=== PATIENT | male | born 1960 | race Caucasian/White ===

== ENCOUNTER 2018-06-28 09:41 | Outpatient (CLI) | payer OTHER ==
[2018-06-28 15:04] LABS: BASOPHILS # (AUTO) 0.1 10^3/uL (0.0-0.1); BASOPHILS % (AUTO) 1.4 %; EOSINOPHILS # (AUTO) 0.2 10^3/uL (0.0-0.7); EOSINOPHILS % (AUTO) 3.7 %; HGB - HEMOGLOBIN 13.3 g/dL (14.0-18.0); LYMPHOCYTES # (AUTO) 1.4 10^3/uL (1.5-3.5); LYMPHOCYTES % (AUTO) 30.3 %; MEAN CORPUSCULAR HEMOGLOBIN 30.3 pg (27.0-31.0); MEAN CORPUSCULAR HGB CONC 33.9 g/dL (32.0-36.0); MEAN CORPUSCULAR VOLUME 89.4 fL (80.0-94.0); MEAN PLATELET VOLUME 9.6 fL (7.4-11.4); MONOCYTES # (AUTO) 0.5 10^3/uL (0.0-1.0); MONOCYTES % (AUTO) 10.7 %; NEUTROPHILS # (AUTO) 2.5 10^3/uL (1.5-6.6); NEUTROPHILS % (AUTO) 53.9 %; PLT - PLATELET COUNT 207 10^3/uL (130-450); RED BLOOD COUNT 4.41 10^6/uL (4.70-6.10); RED CELL DISTRIBUTION WIDTH 13.6 % (12.0-15.0); WHITE BLOOD COUNT 4.7 x10^3/uL (4.8-10.8)
[2018-06-28 15:30] LABS: BUN - BLOOD UREA NITROGEN 23 mg/dL (6-20); CALCIUM 8.7 mg/dL (8.5-10.3); CARBON DIOXIDE - CO2 26 mmol/L (21-32); CHLORIDE 107 mmol/L (101-111); CHOL/HDL RATIO 1.9 (<5.0); CHOLESTEROL 118 mg/dL; GFR - MDRD 77 (>89); GLUCOSE 99 mg/dL (70-100); HDL CHOLESTEROL 62 mg/dL; SODIUM 139 mmol/L (135-145)
[2018-06-28 15:48] LABS: LDL CHOLESTEROL,DIRECT 37 mg/dL; LDLD/HDL RATIO 0.6 (<3.6)
== END 2018-06-28 09:42 | disposition home or self-care (01) ==
LOC: LAB.N 09:41
PROVIDERS: ATTEND Physician Assistant Medical
DX: Z00.00 Encounter for general adult medical examination without abnormal findings (principal)
CPT/HCPCS: 36415; 80048; 80061; 83721; 84153; 84443; 85025

== ENCOUNTER 2019-08-01 10:20 | Outpatient (CLI) | payer OTHER ==
[2019-08-01 10:50] LABS: BASOPHILS # (AUTO) 0.1 10^3/uL (0.0-0.1); EOSINOPHILS # (AUTO) 0.1 10^3/uL (0.0-0.7); EOSINOPHILS % (AUTO) 2.8 %; LYMPHOCYTES # (AUTO) 1.4 10^3/uL (1.5-3.5); LYMPHOCYTES % (AUTO) 28.9 %; MEAN CORPUSCULAR HEMOGLOBIN 29.4 pg (27.0-31.0); MEAN CORPUSCULAR HGB CONC 31.9 g/dL (32.0-36.0); MEAN CORPUSCULAR VOLUME 92.2 fL (80.0-94.0); MEAN PLATELET VOLUME 9.9 fL (7.4-11.4); MONOCYTES # (AUTO) 0.6 10^3/uL (0.0-1.0); MONOCYTES % (AUTO) 11.4 %; NEUTROPHILS # (AUTO) 2.8 10^3/uL (1.5-6.6); NEUTROPHILS % (AUTO) 55.7 %; PLT - PLATELET COUNT 223 10^3/uL (130-450); RED BLOOD COUNT 4.76 10^6/uL (4.70-6.10); RED CELL DISTRIBUTION WIDTH 12.2 % (12.0-15.0)
[2019-08-01 11:16] LABS: ALBUMIN 4.5 g/dL (3.2-5.5); ALBUMIN/GLOBULIN RATIO 1.6 (1.0-2.2); ALKALINE PHOSPHATASE 36 IU/L (42-121); ALT ALANINE AMINOTRANSFERASE 23 IU/L (10-60); AST ASPARTATE AMINOTRANSFERASE 23 IU/L (10-42); BILIRUBIN,TOTAL 0.8 mg/dL (0.2-1.0); BUN - BLOOD UREA NITROGEN 20 mg/dL (6-20); CALCIUM 9.4 mg/dL (8.5-10.3); CARBON DIOXIDE - CO2 31 mmol/L (21-32); CHLORIDE 104 mmol/L (101-111); CHOL/HDL RATIO 1.9 (<5.0); CHOLESTEROL 125 mg/dL; CREATININE 0.9 mg/dL (0.6-1.2); GFR - MDRD 86 (>89); GLUCOSE 100 mg/dL (70-100); HDL CHOLESTEROL 66 mg/dL; SODIUM 141 mmol/L (135-145); TOTAL PROTEIN 7.3 g/dL (6.7-8.2)
== END 2019-08-01 10:21 | disposition home or self-care (01) ==
LOC: LAB 10:20
PROVIDERS: ATTEND Nurse Practitioner
DX: Z00.00 Encounter for general adult medical examination without abnormal findings (principal); Z13.228 Encounter for screening for other metabolic disorders; Z13.29 Encounter for screening for other suspected endocrine disorder; Z13.220 Encounter for screening for lipoid disorders; Z12.5 Encounter for screening for malignant neoplasm of prostate
CPT/HCPCS: 36415; 80053; 80061; 83721; 84153; 84443; 85025

== ENCOUNTER 2020-07-11 07:00 | Outpatient (CLI) | payer OTHER ==
[2020-07-11 12:08] LABS: BASOPHILS # (AUTO) 0.1 10^3/uL (0.0-0.1); BASOPHILS % (AUTO) 1.7 %; EOSINOPHILS # (AUTO) 0.2 10^3/uL (0.0-0.7); EOSINOPHILS % (AUTO) 4.1 %; HGB - HEMOGLOBIN 14.2 g/dL (14.0-18.0); LYMPHOCYTES # (AUTO) 1.5 10^3/uL (1.5-3.5); LYMPHOCYTES % (AUTO) 41.4 %; MEAN CORPUSCULAR HEMOGLOBIN 29.7 pg (27.0-31.0); MEAN CORPUSCULAR VOLUME 92.9 fL (80.0-94.0); MEAN PLATELET VOLUME 11.5 fL (7.4-11.4); MONOCYTES # (AUTO) 0.4 10^3/uL (0.0-1.0); NEUTROPHILS # (AUTO) 1.5 10^3/uL (1.5-6.6); NEUTROPHILS % (AUTO) 41.8 %; PLT - PLATELET COUNT 209 10^3/uL (130-450); RED BLOOD COUNT 4.78 10^6/uL (4.70-6.10); RED CELL DISTRIBUTION WIDTH 12.5 % (12.0-15.0); WHITE BLOOD COUNT 3.6 x10^3/uL (4.8-10.8)
[2020-07-11 12:23] LABS: ALBUMIN 4.4 g/dL (3.2-5.5); ALBUMIN/GLOBULIN RATIO 1.7 (1.0-2.2); ALKALINE PHOSPHATASE 36 IU/L (42-121); ALT ALANINE AMINOTRANSFERASE 20 IU/L (10-60); AST ASPARTATE AMINOTRANSFERASE 29 IU/L (10-42); BILIRUBIN,TOTAL 1.1 mg/dL (0.2-1.0); BUN - BLOOD UREA NITROGEN 12 mg/dL (6-20); CALCIUM 9.5 mg/dL (8.5-10.3); CARBON DIOXIDE - CO2 28 mmol/L (21-32); CHLORIDE 102 mmol/L (101-111); CHOL/HDL RATIO 1.7 (<5.0); CHOLESTEROL 138 mg/dL; GLUCOSE 91 mg/dL (70-100); HDL CHOLESTEROL 81 mg/dL; SODIUM 139 mmol/L (135-145)
== END 2020-07-11 23:59 | disposition home or self-care (01) ==
LOC: LAB.WCP 07:00
PROVIDERS: ATTEND Nurse Practitioner
DX: Z00.00 Encounter for general adult medical examination without abnormal findings (principal); Z13.228 Encounter for screening for other metabolic disorders; Z12.5 Encounter for screening for malignant neoplasm of prostate
CPT/HCPCS: 36415; 80053; 80061; 83721; 84153; 84443; 85025

== ENCOUNTER 2020-08-20 09:30 | Outpatient (CLI) | payer OTHER ==
--- NOTE | 2020-08-20 10:44 | XRAY Report ---
PROCEDURE: Shoulder 3 View LT INDICATIONS: L SHOULDER IMPINGEMENT SYNDROME TECHNIQUE: 4 views of the shoulder were acquired. COMPARISON: None. FINDINGS: Bones: No fractures or dislocations but there is mild distortion of the distal acromium as it articu lates against the distal clavicle, in a pattern indicative of possible prior trauma or even some form of operative intervention. No acute trauma is found. Mild osteoarthritis is present. The inferior ma rgin of the distal clavicle impinges inferiorly against the expected course of the supraspinatus rota tor cuff. No suspicious bony lesions. Visualized ribs appear intact. Soft tissues: No suspicious soft tissue calcifications. IMPRESSION: AC joint osteoarthritic change, and mild distortion greater at the distal clavicle than the distal acromion. This may reflect sequela of old trauma or even operative intervention from the d istant past. Impingement against the supraspinatus rotator cuff likely is present as a result. MRI le ft shoulder arthrogram may be warranted. Reviewed by: Robbie Hernandez MD on 08/20/2020 10:42 AM [facility] Approved by: Robbie Hernandez MD on 08/20/2020 10:42 AM PST Station ID: [id number]
== END 2020-08-20 23:59 | disposition home or self-care (01) ==
LOC: DI.N 09:30
PROVIDERS: ATTEND Physician Assistant
DX: M75.42 Impingement syndrome of left shoulder (principal); M19.012 Primary osteoarthritis, left shoulder

== ENCOUNTER 2021-07-15 07:49 | Outpatient (CLI) | payer OTHER ==
[2021-07-15 12:24] LABS: BASOPHILS # (AUTO) 0.1 10^3/uL (0.0-0.1); BASOPHILS % (AUTO) 1.2 %; EOSINOPHILS # (AUTO) 0.3 10^3/uL (0.0-0.7); EOSINOPHILS % (AUTO) 5.5 %; HCT - HEMATOCRIT 44.4 % (42.0-52.0); HGB - HEMOGLOBIN 14.5 g/dL (14.0-18.0); LYMPHOCYTES # (AUTO) 1.5 10^3/uL (1.5-3.5); LYMPHOCYTES % (AUTO) 30.9 %; MEAN CORPUSCULAR HEMOGLOBIN 30.8 pg (27.0-31.0); MEAN CORPUSCULAR HGB CONC 32.7 g/dL (32.0-36.0); MEAN CORPUSCULAR VOLUME 94.3 fL (80.0-94.0); MEAN PLATELET VOLUME 11.1 fL (7.4-11.4); MONOCYTES # (AUTO) 0.6 10^3/uL (0.0-1.0); MONOCYTES % (AUTO) 12.7 %; NEUTROPHILS # (AUTO) 2.4 10^3/uL (1.5-6.6); NEUTROPHILS % (AUTO) 49.7 %; PLT - PLATELET COUNT 213 10^3/uL (130-450); RED BLOOD COUNT 4.71 10^6/uL (4.70-6.10); RED CELL DISTRIBUTION WIDTH 12.3 % (12.0-15.0); WHITE BLOOD COUNT 4.9 x10^3/uL (4.8-10.8)
[2021-07-15 12:37] LABS: ALBUMIN 4.3 g/dL (3.2-5.5); ALBUMIN/GLOBULIN RATIO 1.4 (1.0-2.2); ALKALINE PHOSPHATASE 35 IU/L (42-121); ALT ALANINE AMINOTRANSFERASE 19 IU/L (10-60); AST ASPARTATE AMINOTRANSFERASE 25 IU/L (10-42); BILIRUBIN,TOTAL 0.8 mg/dL (0.2-1.0); BUN - BLOOD UREA NITROGEN 11 mg/dL (6-20); CALCIUM 9.6 mg/dL (8.5-10.3); CARBON DIOXIDE - CO2 30 mmol/L (21-32); CHLORIDE 100 mmol/L (101-111); CHOL/HDL RATIO 1.5 (<5.0); CHOLESTEROL 149 mg/dL; CREATININE 0.9 mg/dL (0.6-1.2); GFR - MDRD 86 (>89); GLUCOSE 100 mg/dL (70-100); HDL CHOLESTEROL 99 mg/dL; POTASSIUM 4.1 mmol/L (3.5-5.0); SODIUM 140 mmol/L (135-145); TOTAL PROTEIN 7.3 g/dL (6.7-8.2); TRIGLYCERIDES 38 mg/dL
[2021-07-15 12:48] LABS: BILIRUBIN,URINE NEGATIVE (NEGATIVE); GLUCOSE, URINE (UA) NEGATIVE (NEGATIVE); KETONES,URINE (UA) NEGATIVE (NEGATIVE); LEUKOCYTE ESTERASE, URINE NEGATIVE (NEGATIVE); NITRITE,URINE NEGATIVE (NEGATIVE); OCCULT BLOOD,URINE NEGATIVE (NEGATIVE); PROTEIN,URINE NEGATIVE (NEGATIVE); UROBILINOGEN,URINE 0.2 (NORMAL) E.U./dL (NORMAL)
[2021-07-15 13:14] LABS: CLARITY,URINE CLEAR (CLEAR)
[2021-07-15 13:15] LABS: BACTERIA,URINE None Seen /HPF (None Seen); EPITHELIAL CELLS,UR None Seen /HPF (<= Few); RBC,URINE None Seen /HPF (0-5); SQUAMOUS EPITHELIAL CELL,UR NONE SEEN (<= Few); WBC,URINE 0-3 /HPF (0-3)
== END 2021-07-15 23:59 | disposition home or self-care (01) ==
LOC: LAB.WCP 07:49
PROVIDERS: ATTEND Nurse Practitioner
DX: Z13.228 Encounter for screening for other metabolic disorders (principal); Z13.220 Encounter for screening for lipoid disorders; Z12.5 Encounter for screening for malignant neoplasm of prostate
CPT/HCPCS: 36415; 80053; 80061; 81001; 83721; 84153; 85025; 87086

== ENCOUNTER 2021-07-16 07:49 | Outpatient (CLI) | payer OTHER | END 2021-07-16 23:59 | disposition home or self-care (01) | LOC: LAB.WCP 07:49 | PROVIDERS: ATTEND Nurse Practitioner | DX: E78.5 Hyperlipidemia, unspecified (principal) | CPT/HCPCS: 36415; 83721 ==

== ENCOUNTER 2021-12-13 08:00 | Outpatient (CLI) | payer OTHER ==
--- NOTE | 2021-12-13 17:15 | XRAY Report ---
PROCEDURE: Knee 3 View RT INDICATIONS: KNEE JOINT PAIN>3 MONTHS TECHNIQUE: 3 views of the right knee(s) were acquired. COMPARISON: None. FINDINGS: Bones: No fractures or dislocations. No suspicious bony lesions. Moderate medial compartment osteo phytic degenerative changes including joint space narrowing. Mild lateral and patellofemoral compartm ent osteoarthritis. Soft tissues: No joint effusion. No suspicious soft tissue calcifications. IMPRESSION: Right knee tricompartmental osteoarthritis. Reviewed by: Génesis Sanchez MD, PhD on 12/13/2021 5:14 PM PDT Approved by: Génesis Sanchez MD, PhD on 12/13/2021 5:14 PM PDT Station ID: [id number]
== END 2021-12-13 23:59 | disposition home or self-care (01) ==
LOC: DI.N 08:00
PROVIDERS: ATTEND Nurse Practitioner Family
DX: M25.562 Pain in left knee (principal); M17.11 Unilateral primary osteoarthritis, right knee

== ENCOUNTER 2021-12-23 06:21 | Emergency (ER) | payer OTHER ==
[2021-12-23] MEDS ORDERED: KETOROLAC 60 MG/2 ML VIAL IM STA (06:41)
[2021-12-23] MEDS ORDERED: CYCLOBENZAPRINE 10 MG TABLET PO STA (06:41)
[2021-12-23] MEDS ORDERED: HYDROmorphone 1 MG/ML CARPUJECT IM STA (06:41)
--- NOTE | 2021-12-23 06:45 | ED Physician Documentation ---
History of Present Illness - Stated complaint Stated Complaint: BACK PX - Chief complaint Chief Complaint: Back Pain - History obtained from History obtained from: Patient - Additonal information Additional information: The patient comes to the emergency department chief complaint of right lumbar back pain that started yesterday and got worse overnight. He states that yesterday morning, he did some dumbbell bent rows, which he is accustomed to doing. He did not feel any "pop" or sudden pain and states that after the workout he actually felt fairly good. He states he then went home and did some yard work, though he did not think it was very much. The patient is right side dominant and while doing the yard work, began to notice an ache in his right lumbar area. He states that the ache increased steadily throughout the day and began to feel as though something was spasms in his low back. Patient states that for the time he went to bed, the sensation was quite strong and this morning, it was hard to move without hurting a lot in the area. He also states that the area of pain has spread out a bit up and down his right paraspinal musculature. He denies any pain shooting down his legs. No numbness or tingling. No loss of bowel or bladder control. No other injuries and no history of back problems. Review of Systems Ten Systems: 10 systems reviewed and negative Constitutional: reports: Reviewed and negative Eyes: reports: Reviewed and negative Ears: reports: Reviewed and negative Nose: reports: Reviewed and negative Throat: reports: Reviewed and negative Cardiac: reports: Reviewed and negative Respiratory: reports: Reviewed and negative GI: reports: Reviewed and negative : reports: Reviewed and negative Skin: reports: Reviewed and negative Musculoskeletal: reports: Back pain Neurologic: reports: Reviewed and negative Psychiatric: reports: Reviewed and negative Endocrine: reports: Reviewed and negative Immunocompromised: reports: Reviewed and negative PD PAST MEDICAL HISTORY - Past Medical History Past Medical History: No - Past Surgical History Past Surgical History: No - Present Medications Home Medications: Ambulatory Orders Medication Instructions Recorded Confirmed Cyclobenzaprine [Flexeril] 10 mg PO TID PRN #20 tablet 12/23/21 HYDROcod/ACETAM 5/325 [[place] 5/325] 1 - 2 tablet PO Q6H PRN #5 tablet 12/23/21 - Allergies Allergies/Adverse Reactions: Allergies Allergy/AdvReac Type Severity Reaction Status Date / Time No Known Drug Allergies Allergy Verified 12/23/21 06:37 - Social History Does the pt smoke?: No Smoking Status: Never smoker Does the pt drink ETOH?: No Does the pt have substance abuse?: No - Immunizations Immunizations are current?: Yes - POLST Patient has POLST: No PD ED PE NORMAL - Vitals Vital signs reviewed: Yes - General General: Alert and oriented X 3, No acute distress, Well developed/nourished - HEENT HEENT: Atraumatic, PERRL, EOMI, Moist mucous membranes - Neck Neck: Supple, no meningeal sign - Cardiac Cardiac: RRR, No murmur, Strong equal pulses - Respiratory Respiratory: No respiratory distress, Clear bilaterally - Back Back: No CVA TTP, No spinal TTP, Other (Tenderness to palpation over right paraspinal musculature, extending from mid back to lumbosacral area. No sciatic area tenderness.) - Derm Derm: Normal color, Warm and dry, No rash - Extremities Extremities: No deformity - Neuro Neuro: Alert and oriented X 3 - Psych Psych: Normal mood, Normal affect Results - Vitals Vitals: Vital Signs - 24 hr 12/23/21 06:33 Temperature 36.6 C Heart Rate 55 L Respiratory 20 Rate Blood Pressure 125/85 H O2 Saturation 100 Oxygen O2 Source Room air PD MEDICAL DECISION MAKING - ED course Complexity details: considered differential, d/w patient ED course: The patient was treated symptomatically in the emergency department with Toradol, Dilaudid, and Flexeril. He was found to be feeling better after this. I have prescribed symptomatic treatment for him for at home. The patient does not have any evidence of an emergent condition associated with his back. However he feels very much that this is muscular and not deeper inside. As such, no further work-up or interventions have been performed in the emergency department. We have discussed the usual indications for follow-up and return. Departure - Departure Disposition: 01 Home, Self Care Clinical Impression: Acute lumbar myofascial strain Qualifiers: Encounter type: initial encounter Qualified Code(s): S39.012A - Strain of muscle, fascia and tendon of lower back, initial encounter Condition: Stable Instructions: ED Sprain Strain Lumbar Prescriptions: Cyclobenzaprine [Flexeril] 10 mg PO TID PRN #20 tablet PRN Reason: Spasms HYDROcod/ACETAM 5/325 [[place] 5/325] 1 - 2 tablet PO Q6H PRN #5 tablet PRN Reason: Pain Comments: At this point in time, your back pain seems to be muscular in nature. There is no evidence of a more emergent condition causing the pain at this time. You may take the medications prescribed as needed, And the prescriptions have been electronically transmitted to [facility] here in [place].. Please follow-up with your primary doctor in 2 weeks if you are not noticing significant improvement, and discussed further treatment and diagnostics.
[2021-12-23 07:13] VITALS: BP 127/82
== END 2021-12-23 07:23 | disposition home or self-care (01) ==
LOC: ED 06:21
DX: S39.012A Strain of muscle, fascia and tendon of lower back, initial encounter (principal); X58.XXXA Exposure to other specified factors, initial encounter
CPT/HCPCS: 96372; 99283; 99284; A9270; J1170

== ENCOUNTER 2022-04-14 07:24 | Day surgery (SDC) | payer OTHER ==
[2022-04-14] MEDS ORDERED: LACTATED RINGERS 1,000 ML IV ONE ×2 (07:50→09:36)
--- NOTE | 2022-04-14 08:05 | ANESTHESIA ---
Pre-Anesthesia VS, & Labs - Diagnosis diarrhea, blood in stool, change in bowel habit - Procedure colonoscopy Vital Signs: Temp Pulse Resp BP Pulse Ox 36.7 C 57 L 10 L 124/85 H 98 04/14/22 07:50 04/14/22 07:50 04/14/22 07:50 04/14/22 07:50 04/14/22 07:50 Height: 5 ft 10 in Weight (kg): 90 kg Body Mass Index: 28.4 BMI Classification: Overweight - NPO >8 hours Home Medications and Allergies Home Medications: Ambulatory Orders No Known Home Medications 04/14/22 No Known Home Medications 04/14/22 Allergies/Adverse Reactions: Allergies Allergy/AdvReac Type Severity Reaction Status Date / Time No Known Drug Allergies Allergy Verified 04/14/22 07:56 Anes History & Medical History - Anesthetic History Anesthesia Complications: reports: No previous complications - Medical History Cardiovascular: reports: None Pulmonary: reports: None Gastrointestinal: reports: None Urinary: reports: None Neuro: reports: None Musculoskeletal: reports: None Endocrine/Autoimmune: reports: None Blood Disorders: reports: None Smoking Status: Former smoker Psychosocial: reports: Alcohol (recovered), Cannabis (daily edible), Other (vapes daily) - Surgical History General: reports: Colonoscopy Orthopedic: reports: Arthroscopic surgery (left knee), Carpal Tunnel surgery Exam General: Alert, Oriented x3, Cooperative, No acute distress Dental: Partials Upper, Poor dentition Mouth Openin Fingerbreadth Neck Mobility: Normal Mallampati classification: I Thyromental Distance: 4-6 cm Mental/Cognitive Status: Alert/Oriented X3, Normal for patient Plan Anesthesia Type: General, Total IV Consent for Procedure(s) Verified and Reviewed: Yes Code Status: Attempt Resuscitation ASA classification: 2-Mild systemic disease Is this case an emergency?: No
[2022-04-14] MEDS ORDERED: PROPOFOL 500 MG/50 ML 500 MG/50 ML VIAL ONE (08:40)
[2022-04-14] MEDS ORDERED: MIDAZOLAM 2 MG/2 ML VIAL ONE (08:41)
[2022-04-14 10:17] VITALS: BP 116/69
--- NOTE | 2022-04-14 13:26 | ANESTHESIA POST OP EVALUATION ---
Anesthesia Post Eval - Post Anesthesia Eval Vitals: Last Vital Signs Temp 36.2 C L 04/14/22 09:50 Pulse 52 L 04/14/22 09:50 Resp 16 04/14/22 09:50 BP 116/69 04/14/22 09:50 Pulse Ox 98 04/14/22 09:50 CV Function Including HR & BP: Stable Pain Control: Satisfactory Nausea & Vomiting: Negative Mental Status: Baseline Respiratory Status: Airway Patent Hydration Status: Satisfactory Anesthesia Complications: None
== END 2022-04-14 07:25 | disposition home or self-care (01) ==
LOC: SDS 07:24
PROVIDERS: ATTEND Surgery
PROC: 0DBE8ZZ Excision of Large Intestine, Via Natural or Artificial Opening Endoscopic (ICD-10-PCS; principal; 2022-04-14 08:30)
DX: K57.31 Diverticulosis of large intestine without perforation or abscess with bleeding (principal); R19.4 Change in bowel habit; K52.9 Noninfective gastroenteritis and colitis, unspecified; K64.4 Residual hemorrhoidal skin tags; Z87.891 Personal history of nicotine dependence
CPT/HCPCS: 45380; J7120

== ENCOUNTER 2022-07-18 07:30 | Outpatient (CLI) | payer OTHER ==
[2022-07-18 07:51] LABS: BASOPHILS # (AUTO) 0.1 10^3/uL (0.0-0.1); BASOPHILS % (AUTO) 1.4 %; EOSINOPHILS # (AUTO) 0.2 10^3/uL (0.0-0.7); EOSINOPHILS % (AUTO) 5.3 %; HCT - HEMATOCRIT 44.4 % (42.0-52.0); HGB - HEMOGLOBIN 14.5 g/dL (14.0-18.0); LYMPHOCYTES # (AUTO) 1.3 10^3/uL (1.5-3.5); LYMPHOCYTES % (AUTO) 30.1 %; MEAN CORPUSCULAR HEMOGLOBIN 30.3 pg (27.0-31.0); MEAN CORPUSCULAR HGB CONC 32.7 g/dL (32.0-36.0); MEAN CORPUSCULAR VOLUME 92.9 fL (80.0-94.0); MEAN PLATELET VOLUME 10.3 fL (7.4-11.4); MONOCYTES # (AUTO) 0.6 10^3/uL (0.0-1.0); MONOCYTES % (AUTO) 12.8 %; NEUTROPHILS # (AUTO) 2.2 10^3/uL (1.5-6.6); NEUTROPHILS % (AUTO) 50.2 %; PLT - PLATELET COUNT 221 10^3/uL (130-450); RED BLOOD COUNT 4.78 10^6/uL (4.70-6.10); RED CELL DISTRIBUTION WIDTH 11.9 % (12.0-15.0); WHITE BLOOD COUNT 4.4 x10^3/uL (4.8-10.8)
[2022-07-18 08:11] LABS: ALBUMIN 4.3 g/dL (3.2-5.5); ALBUMIN/GLOBULIN RATIO 1.4 (1.0-2.2); ALKALINE PHOSPHATASE 37 IU/L (42-121); ALT ALANINE AMINOTRANSFERASE 18 IU/L (10-60); AST ASPARTATE AMINOTRANSFERASE 24 IU/L (10-42); BUN - BLOOD UREA NITROGEN 10 mg/dL (6-20); CALCIUM 9.6 mg/dL (8.5-10.3); CARBON DIOXIDE - CO2 30 mmol/L (21-32); CHLORIDE 102 mmol/L (101-111); CHOL/HDL RATIO 1.6 (<5.0); CHOLESTEROL 142 mg/dL; CREATININE 0.9 mg/dL (0.6-1.2); GFR - MDRD 86 (>89); GLUCOSE 116 mg/dL (70-100); HDL CHOLESTEROL 87 mg/dL; POTASSIUM 4.2 mmol/L (3.5-5.0); SODIUM 140 mmol/L (135-145); TOTAL PROTEIN 7.4 g/dL (6.7-8.2); TRIGLYCERIDES 19 mg/dL
[2022-07-18 08:21] LABS: THYROID STIMULATING HORMONE 1.2 uIU/mL (0.34-5.60)
== END 2022-07-18 07:31 | disposition home or self-care (01) ==
LOC: LAB 07:30
PROVIDERS: ATTEND Physician Assistant
DX: Z13.228 Encounter for screening for other metabolic disorders (principal); Z13.220 Encounter for screening for lipoid disorders; Z12.5 Encounter for screening for malignant neoplasm of prostate; Z13.29 Encounter for screening for other suspected endocrine disorder
CPT/HCPCS: 36415; 80053; 80061; 83721; 84153; 84443; 85025

== ENCOUNTER 2022-09-03 07:48 | Outpatient (CLI) | payer OTHER ==
--- NOTE | 2022-09-03 19:20 | XRAY Report ---
PROCEDURE: Shoulder 2 View RT INDICATIONS: PAIN IN RIGHT SHOULDER TECHNIQUE: 2 views of the shoulder were acquired. COMPARISON: None. FINDINGS: Bones: No fractures or dislocations. Osteoarthritic changes are seen in acromioclavicular joint and glenohumeral joint with subchondral sclerosis and marginal osteophyte formation. No suspicious bony lesions. Visualized ribs appear intact. Soft tissues: No suspicious soft tissue calcifications. IMPRESSION: Osteoarthritic changes in right shoulder joint. No fracture or dislocation. No gross sof t tissue abnormalities. Reviewed by: Jaime Kitchen MD on 09/03/2022 7:19 PM PST Approved by: Jaime Kitchen MD on 09/03/2022 7:19 PM PST Station ID: [id number]
== END 2022-09-03 07:49 | disposition home or self-care (01) ==
LOC: DI 07:48
PROVIDERS: ATTEND Physician Assistant
DX: M19.011 Primary osteoarthritis, right shoulder (principal)

== ENCOUNTER 2022-09-08 12:38 | Outpatient (CLI) | payer SELFPAY ==
--- NOTE | 2022-09-08 13:12 | XRAY Report ---
PROCEDURE: Shoulder 2 View RT INDICATIONS: RIGHT SHOULDER PAIN TECHNIQUE: 2 views of the shoulder were acquired. COMPARISON: None. FINDINGS: Bones: No fractures or dislocations. No suspicious bony lesions. Visualized ribs appear intact. M ild to moderate acromioclavicular narrowing. Soft tissues: No suspicious soft tissue calcifications. IMPRESSION: Mild to moderate acromioclavicular narrowing. Reviewed by: Marlene Herrera MD on 09/08/2022 1:11 PM PST Approved by: Marlene Herrera MD on 09/08/2022 1:11 PM PST Station ID: [id number]
== END 2022-09-08 12:39 | disposition home or self-care (01) ==
LOC: DI.WOS 12:38
PROVIDERS: ATTEND Physician Assistant Surgical
DX: M25.511 Pain in right shoulder (principal)

== ENCOUNTER 2023-01-12 08:00 | Outpatient (CLI) | payer OTHER ==
--- NOTE | 2023-01-12 16:52 | XRAY Report ---
PROCEDURE: Knee 4 View RT INDICATIONS: RIGHT KNEE PAIN TECHNIQUE: 4 views of the right knee(s) were acquired. COMPARISON: None. FINDINGS: Bones: No fractures or dislocations. No suspicious bony lesions. Mild tricompartment periareolar articular osteophyte formation. Severe medial compartment narrowing. Soft tissues: No knee joint effusion. No suspicious soft tissue calcifications or masses. IMPRESSION: Osteoarthritis with medial compartment narrowing. No acute fracture. No osseous lesion. If symptoms a nd/or clinical suspicion for pathology continue, further assessment with repeat plain films, or advan arpit imaging (e.g., CT, MRI, or bone scan) is recommended for further assessment. Reviewed by: Rubén Shukla MD on 01/12/2023 4:51 PM PDT Approved by: Rubén Shukla MD on 01/12/2023 4:51 PM PDT Station ID: [id number]
== END 2023-01-12 23:59 | disposition home or self-care (01) ==
LOC: DI.WOS 08:00
PROVIDERS: ATTEND Orthopaedic Surgery
DX: M17.11 Unilateral primary osteoarthritis, right knee (principal)

== ENCOUNTER 2023-02-02 10:06 | Outpatient (CLI) | payer OTHER ==
[~2023-02-02 10:06] MED LIST: BUPIVACAINE 0.5% PF 10 ML VIAL ONE; LIDOCAINE-MPF 1% 5 ML VIAL ONE; TRIAMCINOLONE 40 MG/ML VIAL ONE; iohexoL-240 10 ML VIAL IVP ONE
[2023-02-02] MEDS ORDERED: TRIAMCINOLONE 40 MG/ML VIAL ONE (10:41)
[2023-02-02] MEDS ORDERED: BUPIVACAINE 0.5% PF 10 ML VIAL IM ONE (11:14)
[2023-02-02] MEDS ORDERED: iohexoL-240 10 ML VIAL IVP ONE (11:15)
[2023-02-02] MEDS ORDERED: LIDOCAINE-MPF 1% 5 ML VIAL TD ONE (11:16)
[2023-02-02] MEDS ORDERED: TRIAMCINOLONE 40 MG/ML VIAL IM ONE (11:17)
--- NOTE | 2023-02-02 12:07 | XRAY Report ---
PROCEDURE: Inj/Aspiration Major Joint INDICATIONS: RIGHT SHOULDER OSTEOARTHRITIS FLUORO TIME: 0.2 min TECHNIQUE: The indications, alternatives, benefits, risks, and complications of the procedure were explained to the patient. Written informed consent was obtained and placed in the chart. The patient was placed in an appropriate position on the fluoroscopy table, and a site was chosen for percutaneous access un bouchra fluoroscopic guidance. Local anesthetic was administered using a 1% lidocaine solution. A hypod ermic or spinal needle was then used to access the symptomatic joint. Intra-articular location of th e needle tip was confirmed by injecting a small amount of contrast, followed by steroid administratio n. The needle was then withdrawn, and a bandage applied to the puncture site. FINDINGS: Joint injected: Right shoulder joint. Medications injected: 6 mL of 40 mg/mL Kenalog and 0.5% Ropivacaine mixture. Complications: None. IMPRESSION: Successful fluoroscopically guided administration of steroid and anaesthetic solution into the right shoulder joint. Reviewed by: Jaime Armendariz MD on 02/02/2023 12:06 PM PDT Approved by: Jaime Armendariz MD on 02/02/2023 12:06 PM PDT Station ID: [id number]
== END 2023-02-02 10:07 | disposition home or self-care (01) ==
LOC: DI 10:06
PROVIDERS: ATTEND Physician Assistant Surgical
DX: M19.011 Primary osteoarthritis, right shoulder (principal)
CPT/HCPCS: 20610; 77002; Q9966

== ENCOUNTER 2023-08-13 06:51 | Outpatient (CLI) | payer OTHER ==
[2023-08-13 07:35] LABS: ALBUMIN 4.3 g/dL (3.2-5.5); ALBUMIN/GLOBULIN RATIO 1.7 (1.0-2.2); ALKALINE PHOSPHATASE 37 IU/L (42-121); ALT ALANINE AMINOTRANSFERASE 19 IU/L (10-60); AST ASPARTATE AMINOTRANSFERASE 23 IU/L (10-42); BILIRUBIN,TOTAL 0.6 mg/dL (0.2-1.0); BUN - BLOOD UREA NITROGEN 10 mg/dL (6-20); CALCIUM 9.6 mg/dL (8.5-10.3); CARBON DIOXIDE - CO2 33 mmol/L (21-32); CHLORIDE 104 mmol/L (101-111); CHOL/HDL RATIO 1.4 (<5.0); CHOLESTEROL 134 mg/dL; CREATININE 0.9 mg/dL (0.6-1.3); GFR - MDRD 85 (>89); GLUCOSE 115 mg/dL (74-104); HDL CHOLESTEROL 94 mg/dL; POTASSIUM 4.3 mmol/L (3.5-4.5); SODIUM 140 mmol/L (135-145); TOTAL PROTEIN 6.8 g/dL (6.4-8.9); TRIGLYCERIDES 27 mg/dL (48-352)
[2023-08-13 07:45] LABS: BASOPHILS # (AUTO) 0.1 10^3/uL (0.0-0.1); BASOPHILS % (AUTO) 1.4 %; EOSINOPHILS # (AUTO) 0.2 10^3/uL (0.0-0.7); EOSINOPHILS % (AUTO) 3.7 %; HCT - HEMATOCRIT 45.8 % (42.0-52.0); HGB - HEMOGLOBIN 14.9 g/dL (14.0-18.0); LYMPHOCYTES # (AUTO) 1.5 10^3/uL (1.5-3.5); LYMPHOCYTES % (AUTO) 33.8 %; MEAN CORPUSCULAR HEMOGLOBIN 30.9 pg (27.0-31.0); MEAN CORPUSCULAR HGB CONC 32.5 g/dL (32.0-36.0); MEAN PLATELET VOLUME 10.8 fL (7.4-11.4); MONOCYTES # (AUTO) 0.6 10^3/uL (0.0-1.0); MONOCYTES % (AUTO) 12.6 %; NEUTROPHILS # (AUTO) 2.1 10^3/uL (1.5-6.6); NEUTROPHILS % (AUTO) 48.3 %; PLT - PLATELET COUNT 222 10^3/uL (130-450); RED BLOOD COUNT 4.82 10^6/uL (4.70-6.10); RED CELL DISTRIBUTION WIDTH 12.1 % (12.0-15.0); WHITE BLOOD COUNT 4.4 x10^3/uL (4.8-10.8)
[2023-08-13 07:46] LABS: THYROID STIMULATING HORMONE 1.14 uIU/mL (0.34-5.60)
[2023-08-13 10:20] LABS: ESTIMATED AVERAGE GLUCOSE 128 mg/dL (70-100); HEMOGLOBIN A1c% 6.1 % (4.27-6.07)
== END 2023-08-13 06:52 | disposition home or self-care (01) ==
LOC: LAB 06:51
PROVIDERS: ATTEND Physician Assistant
DX: Z00.00 Encounter for general adult medical examination without abnormal findings (principal); R73.01 Impaired fasting glucose; Z13.220 Encounter for screening for lipoid disorders; Z12.5 Encounter for screening for malignant neoplasm of prostate; Z13.29 Encounter for screening for other suspected endocrine disorder
CPT/HCPCS: 36415; 80053; 80061; 83036; 83721; 84153; 84443; 85025

== ENCOUNTER 2023-09-01 19:32 | Emergency (ER) | payer OTHER ==
[2023-09-01 19:50] VITALS: O2SAT 97
[2023-09-01 20:24] LABS: BASOPHILS # (AUTO) 0.1 10^3/uL (0.0-0.1); BASOPHILS % (AUTO) 0.9 %; EOSINOPHILS # (AUTO) 0.1 10^3/uL (0.0-0.7); EOSINOPHILS % (AUTO) 2.4 %; HCT - HEMATOCRIT 38.9 % (42.0-52.0); LYMPHOCYTES # (AUTO) 1.8 10^3/uL (1.5-3.5); LYMPHOCYTES % (AUTO) 32.1 %; MEAN CORPUSCULAR HEMOGLOBIN 31.3 pg (27.0-31.0); MEAN CORPUSCULAR HGB CONC 33.4 g/dL (32.0-36.0); MEAN CORPUSCULAR VOLUME 93.7 fL (80.0-94.0); MEAN PLATELET VOLUME 10.6 fL (7.4-11.4); MONOCYTES # (AUTO) 0.6 10^3/uL (0.0-1.0); MONOCYTES % (AUTO) 9.8 %; NEUTROPHILS # (AUTO) 3.1 10^3/uL (1.5-6.6); NEUTROPHILS % (AUTO) 54.6 %; PLT - PLATELET COUNT 199 10^3/uL (130-450); RED BLOOD COUNT 4.15 10^6/uL (4.70-6.10); WHITE BLOOD COUNT 5.7 x10^3/uL (4.8-10.8)
--- NOTE | 2023-09-01 20:24 | XRAY Report ---
PROCEDURE: Chest 1V INDICATIONS: Chest Pain TECHNIQUE: One view of the chest was acquired. COMPARISON: None. FINDINGS: Surgical changes and devices: None. Lungs and pleura: No pleural effusions or pneumothorax. Lungs are clear. Peribronchial cuffing. Mediastinum: Mediastinal contours appear normal. Heart size is normal. Bones and chest wall: No suspicious bony lesions. Overlying soft tissues appear unremarkable. IMPRESSION: Peribronchial cuffing, suggestive of infectious or inflammatory bronchitis. Reviewed by: Behzad Núñez MD on 09/01/2023 8:23 PM PST Approved by: Behzad Núñez MD on 09/01/2023 8:23 PM PST Station ID: [id number]
[2023-09-01] MEDS ORDERED: SODIUM CHLORIDE 0.9% 1,000 ML IV STA (20:35)
[2023-09-01 20:40] LABS: ALBUMIN 3.9 g/dL (3.2-5.5); ALBUMIN/GLOBULIN RATIO 1.7 (1.0-2.2); BILIRUBIN,TOTAL 0.4 mg/dL (0.2-1.0); CREATININE 0.9 mg/dL (0.6-1.3); POTASSIUM 3.6 mmol/L (3.5-4.5); TOTAL PROTEIN 6.2 g/dL (6.4-8.9)
[2023-09-01 20:45] LABS: TROPONIN I HIGH SENSITIVITY 10.8 ng/L (2.3-19.7)
--- NOTE | 2023-09-01 20:45 | ED Physician Documentation ---
PD HPI CHEST PAIN - Stated complaint Stated Complaint: CHEST PX - Chief complaint Chief Complaint: Cardiac - History obtained from History obtained from: Patient - Additional information Additional information: Patient is a 63-year-old male with a history of hypertension and PVCs presenting for evaluation of left-sided chest pain. Patient states that this started yesterday afternoon while he was laying in bed watching TV and describes it as an achiness in the pectoral region. He states he took Tylenol and rub the area and it seemed like it got better. 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 When he returned home he had a clean steak and a salad. He then was sitting down and resting around 430 PM and started feeling the same discomfort again in the left side of his chest. He states that he recently went for his yearly physical and was told that his blood pressure was elevated. They are currently monitoring it. He was also told that he is having extra heartbeats. He is scheduled for an echo in October. Because he was recently told he has to watch his blood pressure and has some extra heartbeats he became concerned regarding that the pain in his chest. He states that at max it is around a 3 or 4. He currently does not have any pain. He denies feeling dizzy or lightheaded or short of air. He reports doing 2-hour workouts twice a week on and Fridays and has not had other episodes of chest pain or feeling dizzy or feeling unwell during these workouts. He denies a history of hyperlipidemia or diabetes. He quit vaping. He does not drink alcohol. He denies pain elsewhere. No nausea, vomiting, abdominal symptoms. No leg swelling or pain. No recent travel or immobilization. Review of Systems Constitutional: denies: Fever Nose: reports: Congestion (States always has some congestion related to allergies) Cardiac: reports: Chest pain / pressure Respiratory: denies: Dyspnea GI: denies: Abdominal Pain, Vomiting : denies: Dysuria Musculoskeletal: denies: Extremity swelling PD PAST MEDICAL HISTORY - Past Medical History Cardiovascular: None Respiratory: None Neuro: None Endocrine/Autoimmune: None GI: None : None HEENT:  Musculoskeletal: None - Past Surgical History Past Surgical History: Yes General: Colonoscopy Ortho: Arthroscopic surgery, Carpal Tunnel surgery - Present Medications Home Medications: Ambulatory Orders Medication Instructions Recorded Confirmed Famotidine [Pepcid] 1 tab PO DAILY 09/01/23 09/01/23 - Allergies Allergies/Adverse Reactions: Allergies Allergy/AdvReac Type Severity Reaction Status Date / Time No Known Drug Allergies Allergy Verified 09/01/23 19:46 - Social History Does the pt smoke?: No Smoking Status: Never smoker Does the pt drink ETOH?: No Does the pt have substance abuse?: No - Immunizations Immunizations are current?: Yes - POLST Patient has POLST: No PD ED PE NORMAL - General General: Alert and oriented X 3, No acute distress, Well developed/nourished - HEENT HEENT: Atraumatic, Moist mucous membranes, Pharynx benign - Neck Neck: Supple, no meningeal sign - Cardiac Cardiac: RRR, Strong equal pulses, Other (No chest wall tenderness, no rash) - Respiratory Respiratory: No respiratory distress, Clear bilaterally - Abdomen Abdomen: Normal bowel sounds, Soft, Non tender, Non distended - Derm Derm: Warm and dry - Extremities Extremities: No edema, No calf tenderness / cord - Neuro Neuro: Normal speech Results - Vitals Vitals: Vital Signs - 24 hr 09/01/23 09/01/23 09/01/23 19:43 21:46 23:00 Temperature 36.9 C Heart Rate 69 56 L 53 L Respiratory 16 16 16 Rate Blood Pressure 147/91 H 122/71 145/91 H O2 Saturation 97 97 97 Oxygen O2 Source Room air - EKG (time done) 1950 EKG releavant findings:: EKG personally interpreted by author of this note. Relevant findings are: Rate 68, normal sinus rhythm, no STEMI, no significant ST depressions - Labs Labs: Laboratory Tests 09/01/23 09/01/23 09/01/23 20:21 20:21 22:21 WBC 5.7 RBC 4.15 L Hgb 13.0 L Hct 38.9 L MCV 93.7 MCH 31.3 H MCHC 33.4 RDW 12.0 Plt Count 199 MPV 10.6 Neut # (Auto) 3.1 Lymph # (Auto) 1.8 Alpine # (Auto) 0.6 Eos # (Auto) 0.1 Baso # (Auto) 0.1 Absolute Nucleated RBC 0.00 Nucleated RBC % 0.0 Sodium 132 L Potassium 3.6 Chloride 99 L Carbon Dioxide 30 Anion Gap 3.0 L BUN 10 Creatinine 0.9 Estimated GFR (MDRD) 85 L Glucose 100 Calcium 9.0 Total Bilirubin 0.4 AST 20 ALT 16 Alkaline Phosphatase 39 L Troponin I High Sens 10.8 12.4 Total Protein 6.2 L Albumin 3.9 Globulin 2.3 Albumin/Globulin Ratio 1.7 Lipase 23 PD Medical Decision Making - ED course Complexity details: reviewed results, re-evaluated patient, d/w patient ED course: Patient is a 63-year-old male with a history of hypertension (not on medications, being observed) presenting for evaluation of left-sided chest pain. He reports having an episode last night and again tonight. Was quite active during the daytime though today and did not have any episodes of chest pain during this time. Nothing makes the pain worse. Sometimes rubbing the area makes it better. No other associated symptoms such as shortness of air, diaphoresis or nausea or vomiting. No syncope. No dizziness. EKG is reviewed and nonischemic. CBC, chemistries, troponin were obtained and reviewed without significant abnormalities. Chest x-ray which I reviewed shows no consolidation or effusion. High sensitive troponin was repeated after 2 hours and remains negative. Patient is symptom-free here. Therefore I also feel that PE or aortic dissection are unlikely. He is ambulating without any difficulty and without symptoms. He is considered low risk per the heart score And appropriate for close outpatient follow-up. He is advised on strict return precautions for any new or worsening symptoms. 2130 - Patient resting comfortably. Reviewed initial labs. Discussed plan for repeat troponin. Departure - Departure Disposition: 01 Home, Self Care Clinical Impression: Chest pain Condition: Stable Instructions: ED Chest Pain Atypical Unkn Cause Comments: Your testing today is not showing signs of a heart attack. However sometimes you may need further testing to detect any issues with your heart such as a stress test or echocardiogram which is an ultrasound of your heart. I would recommend calling your primary care provider tomorrow to have close follow-up regarding your symptoms today And to see if you should have further testing such as a stress test. Return to the emergency department if you develop any worsening symptoms such as worsening pain, pain in new location or any other concerns. Forms: PCP List Discharge Date/Time: 09/01/23 23:28
[2023-09-01 23:33] VITALS: BP 145/91
== END 2023-09-01 23:28 | disposition home or self-care (01) ==
LOC: ED 19:32
DX: R07.9 Chest pain, unspecified (principal); I10 Essential (primary) hypertension
CPT/HCPCS: 36415; 80053; 83690; 84484; 85025; 93005; 99283; 99284

== ENCOUNTER 2023-12-04 07:36 | Outpatient (CLI) | payer OTHER | END 2023-12-04 07:37 | disposition home or self-care (01) | LOC: DI 07:36 | PROVIDERS: ATTEND Physician Assistant | DX: I49.3 Ventricular premature depolarization (principal); I49.9 Cardiac arrhythmia, unspecified | CPT/HCPCS: 93307 ==

== ENCOUNTER 2024-03-25 07:13 | Outpatient (CLI) | payer OTHER ==
[2024-03-25 07:39] LABS: CALCIUM 9.2 mg/dL (8.5-10.3); CREATININE 0.9 mg/dL (0.6-1.3); POTASSIUM 4.3 mmol/L (3.5-4.5)
[2024-03-25 09:03] LABS: ESTIMATED AVERAGE GLUCOSE 120 mg/dL (70-100); HEMOGLOBIN A1c% 5.8 % (4.27-6.07)
== END 2024-03-25 07:14 | disposition home or self-care (01) ==
LOC: LAB 07:13
PROVIDERS: ATTEND Physician Assistant
DX: R73.01 Impaired fasting glucose (principal)
CPT/HCPCS: 36415; 80048; 83036